=== PATIENT | female | born 1940 | race Caucasian/White ===

== ENCOUNTER 2016-11-20 08:13 | Day surgery (SDC) | payer MEDICARE, BC ==
[2016-11-15 13:58] VITALS: BMI 50.8
[~2016-11-20 08:13] MED LIST: LACTATED RINGERS 1,000 ML IV SCH
[2016-11-20 09:23] VITALS: RESP 18; TEMP 97.1
[2016-11-20] MEDS ORDERED: LIDOCAINE 1% 20 ML VIAL (10MG/ML) FOR IV START INTRADERMA ONE (09:23)
[2016-11-20] MEDS ORDERED: PROPOFOL 10 MG/ML 20 ML VIAL IV ONE (09:41)
--- NOTE | 2016-11-20 09:52 | P.PCN ---
Date of Procedure: 11/20/16 Procedure(s) Performed: BRIEF HISTORY: Patient is a 75-year-old, pleasant, white female, scheduled for an upper endoscopy as a part of surveillance of long-standing history of Valdez 's esophagus. Her last upper endoscopy was 2 years ago. He lately has been she has been complaint of intermittent dysphagia she had to solids. PROCEDURE PERFORMED: Esophagogastroduodenoscopy with biopsy. PREOPERATIVE DIAGNOSIS: Intermittent dysphagia to solids/lungs any history of GERD/Valdez's esophagus. IV sedation per anesthesia. PROCEDURE: After informed consent was obtained, the patient was brought into the endoscopy unit. IV conscious sedation was administered by Anesthesia under continuous monitoring. Initially the Olympus GIF-140 video endoscope was inserted into the mouth. Esophagus intubated without any difficulty. It was gradually advanced into the stomach and duodenum and carefully examined. The bulb and the second part of the duodenum appeared normal. The scope at this time was withdrawn to the stomach, adequately insufflated with air, and upon careful examination, mucosa of the antrum, body, cardia and the fundus appeared normal. The scope was then withdrawn into the esophagus. Moderate to large size hiatal hernia noted. The hiatal hernial sac appeared normal. The GE junction was located at 30 cm from the incisors. There was a calcified esophagus noted in the distal esophagus extending from 29-30 cm from the incisors and multiple biopsies were done from this area. The rest of the esophagus appeared normal. There were no erosions or ulcerations seen. No evidence of esophageal stricture and the patient tolerated the procedure well. IMPRESSION: 1. Valdez's esophagus status post biopsy. 2. Moderate to large size hiatal hernia. RECOMMENDATIONS: The findings of this examination were discussed with the patient as well as her family. She was advised to continue with her current medications and follow with the biopsy results. If the biopsy does not show any evidence of dysplasia she can have a repeat upper endoscopy in 2 years..
[2016-11-20 10:30] VITALS: BP 132/62; PULSE 60
== END 2016-11-20 11:09 | disposition home or self-care (01) ==
LOC: ORWHC2ENDO 08:13
PROVIDERS: ATTEND Internal Medicine Gastroenterology
DX: K22.70 Barrett's esophagus without dysplasia (principal); K44.9 Diaphragmatic hernia without obstruction or gangrene; I10 Essential (primary) hypertension; E78.5 Hyperlipidemia, unspecified; Z88.2 Allergy status to sulfonamides; Z79.899 Other long term (current) drug therapy
CPT/HCPCS: 43239; 88305; J2704

== ENCOUNTER → 2017-03-14 | Outpatient (CLI) | payer MEDICARE, BC ==
--- NOTE | 2017-03-14 11:33 | FL ---
EXAMINATION TYPE: FL barium swallow w video DATE OF EXAM: 03/14/2017 MODIFIED SWALLOW CLINICAL HISTORY: Dysphagia. TECHNIQUE: Deglutition study is performed utilizing thin liquid barium, honey and nectar thick liqui d barium, barium thick applesauce, and barium coated cracker. COMPARISON: None. FINDINGS: The oral and pharyngeal phases show satisfactory initiation and propagation with all modali ties tested. Normal mastication is seen with solid modalities tested. There is no evidence of penet ration or aspiration with any modality tested. No significant pharyngeal residue was appreciated. IMPRESSION: Normal deglutition study. Please refer to speech therapist notes for further details if necessary.
== END | disposition home or self-care (01) ==
LOC: RADFLMAIN 10:42
PROVIDERS: ATTEND Otolaryngology
DX: R13.10 Dysphagia, unspecified (principal)
CPT/HCPCS: 74230

== ENCOUNTER → 2017-05-23 | Outpatient (CLI) | payer MEDICARE, BC ==
--- NOTE | 2017-05-26 06:56 | MM ---
Reason for exam: screening (asymptomatic). Last mammogram was performed 1 year ago. History: Patient is postmenopausal. Benign excisional biopsy of the right breast, 1969. Physical Findings: A clinical breast exam by your physician is recommended on an annual basis and results should be correlated with mammographic findings. MG 3D Screening Mammo W/Cad Bilateral CC and MLO view(s) were taken. Prior study comparison: May 17, 2016, bilateral MG screening mammo w CAD. May 16, 2015, bilateral MG screening mammo w CAD. May 03, 2014, bilateral MG screening mammo w CAD. There are scattered fibroglandular densities. No suspicious abnormality. No significant changes when compared with prior studies. ASSESSMENT: Negative, BI-RAD 1 RECOMMENDATION: Routine screening mammogram of both breasts in 1 year.
== END | disposition home or self-care (01) ==
LOC: RADMAMWWP 06:48
PROVIDERS: ATTEND Internal Medicine
DX: Z12.31 Encounter for screening mammogram for malignant neoplasm of breast (principal)
CPT/HCPCS: 77063; G0202

== ENCOUNTER → 2017-11-13 | Outpatient (CLI) | payer MEDICARE, BC ==
[2017-11-13 09:04] LABS: Blood Urea Nitrogen 25 mg/dL (7-17)
--- NOTE | 2017-11-13 11:56 | CT ---
EXAMINATION TYPE: CT abdomen w con DATE OF EXAM: 11/13/2017 COMPARISON: NONE HISTORY: Hiatal hernia CT DLP: 2228.7 mGycm Automated exposure control for dose reduction was used. TECHNIQUE: Helical acquisition of images was performed from the lung bases through the top of iliac crest to include entire abdomen. CONTRAST: Performed with Oral Contrast and with IV Contrast, patient injected with 80 mL of Visipaque 320. FINDINGS: There is a hiatal hernia with intrathoracic stomach. Small supraumbilical abdominal wall he rnia contains fat. LUNG BASES: Calcified granuloma present in the right lung base laterally, no pleural or pericardial e ffusion LIVER/GB: Liver shows low-attenuation, gallbladder is normal PANCREAS: No significant abnormality is seen. SPLEEN: Multiple punctate calcifications are compatible with old granulomatous disease ADRENALS: No significant abnormality is seen. KIDNEYS: Small cortical cyst present in the anterior right kidney, parapelvic cysts present on the le ft are suspected. BOWEL: No significant abnormality is seen. LYMPH NODES: No significant abnormality is appreciated. OSSEOUS STRUCTURES: No significant abnormality is seen. FREE AIR: No Free Air visible ASCITES: None visible. RETROPERITONEAL ADENOPATHY: No Retroperitoneal Adenopathy visible. OTHER: IMPRESSION: FIXED INTRATHORACIC STOMACH WITH HIATAL HERNIA. OLD GRANULOMATOUS DISEASE. 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 ADDITIONAL FINDINGS ABOVE.
== END | disposition home or self-care (01) ==
LOC: RADCTMAIN 08:25
PROVIDERS: ATTEND Internal Medicine Gastroenterology
DX: K44.9 Diaphragmatic hernia without obstruction or gangrene (principal)
CPT/HCPCS: 82565; 84520; 74160; 36415; Q9967

== ENCOUNTER → 2018-11-13 | Outpatient (CLI) | payer MEDICARE, BC ==
--- NOTE | 2018-11-16 11:43 | MM ---
Reason for exam: screening (asymptomatic). Last mammogram was performed 1 year and 6 months ago. History: Patient is postmenopausal. Benign excisional biopsy of the right breast, 1970. Physical Findings: Nurse did not find any significant physical abnormalities on exam. MG 3D Screening Mammo W/Cad Bilateral CC and MLO view(s) were taken. Prior study comparison: May 23, 2017, bilateral MG 3d screening mammo w/cad. May 17, 2016, bilateral MG screening mammo w CAD. There are scattered fibroglandular densities. No significant changes when compared with prior studies. ASSESSMENT: Benign, BI-RAD 2 RECOMMENDATION: Routine screening mammogram of both breasts in 1 year.
== END | disposition home or self-care (01) ==
LOC: RADMAMWWP 10:44
PROVIDERS: ATTEND Internal Medicine
DX: Z12.31 Encounter for screening mammogram for malignant neoplasm of breast (principal)
CPT/HCPCS: 77063; 77067

== ENCOUNTER 2019-03-04 07:48 | Day surgery (SDC) | payer MEDICARE, BC ==
[2019-02-26 14:20] VITALS: BMI 46.0
--- NOTE | 2019-03-04 07:31 | P.GSHP ---
History of Present Illness H&P Date: 03/04/19 CHIEF COMPLAINT: GERD HISTORY OF PRESENT ILLNESS: The patient is a 78-year-old female who presents reports gastroesophageal reflux disease. Upper endoscopy was offered for further evaluation and management. PAST MEDICAL HISTORY: Please see list. PAST SURGICAL HISTORY: Please see list. MEDICATIONS: Please see list. ALLERGIES: Please see list. SOCIAL HISTORY: No illicit drug use FAMILY HISTORY: No reports of Crohn disease or ulcerative colitis. REVIEW OF ORGAN SYSTEMS: CONSTITUTIONAL: No reports of fevers or chills. GI: Denies any blood in stools or constipation. PHYSICAL EXAM: VITAL SIGNS: Stable GENERAL: Well-developed and pleasant in no acute distress. HEENT: No scleral icterus. Extraocular movements grossly intact. Moist buccal mucosa. NECK: Supple without lymphadenopathy. CHEST: Unlabored respirations. Equal bilateral excursions. CARDIOVASCULAR: Regular rate and rhythm. Distal 2+ pulses. ABDOMEN: Soft, nondistended. MUSCULOSKELETAL: No clubbing, cyanosis, or edema. ASSESSMENT: 1. Gastroesophageal reflux disease PLAN: 1. Recommend proceeding with an upper endoscopy Past Medical History Past Medical History: GERD/Reflux, Hyperlipidemia, Hypertension Additional Past Medical History / Comment(s): anemia History of Any Multi-Drug Resistant Organisms: None Reported Past Surgical History: Breast Surgery, Tonsillectomy, Tubal Ligation Additional Past Surgical History / Comment(s): JOSE CATARACTS, BREAST LUMPECTOMY, surgery for hiatal hernia-removed tumor in abdomen, Past Anesthesia/Blood Transfusion Reactions: Previous Problems w/ Anesthesia Additional Past Anesthesia/Blood Transfusion Reaction / Comment(s): throat swelling/hives/vomiting from hurricaine/benzocaine spray in throat Smoking Status: Former smoker - Past Family History Father Family Medical History: Cancer Sister(s) Family Medical History: Cancer Brother(s) Additional Family Medical History / Comment(s): brain hemorrhage Medications and Allergies Home Medications Medication Instructions Recorded Confirmed Type Aspirin 81 mg PO DAILY 11/07/14 02/26/19 History Hydrochlorothiazide 12.5 mg PO QAM 11/07/14 02/26/19 History Losartan Potassium 50 mg PO QAM 11/07/14 02/26/19 History Pravastatin Sodium [Pravachol] 20 mg PO HS 11/07/14 02/26/19 History Calcium Carbonate [Calcium] 600 mg PO DAILY 11/15/16 02/26/19 History Cholecalciferol [Vitamin D3] 1,000 unit PO DAILY 11/15/16 02/26/19 History Pyridoxine [Vitamin B-6] 50 mg PO ONCE 11/15/16 02/26/19 History Allergies Allergy/AdvReac Type Severity Reaction Status Date / Time benzocaine Allergy throat Verified 02/26/19 14:09 swelling, hives, chills, vomiting Sulfa (Sulfonamide Allergy Rash/Hives Verified 02/26/19 14:09 Antibiotics) hurricaine spray Allergy throat Uncoded 02/26/19 14:09 swelling, hives, chills, vomiting
[~2019-03-04 07:48] MED LIST changes: +LIDOCAINE 1% 20 ML VIAL (10MG/ML) FOR IV START INTRADERMA PRN
[2019-03-04 08:08] VITALS: TEMP 96.9
[2019-03-04] MEDS ORDERED: MIDAZOLAM 2 MG/2 ML VIAL ONE (08:25)
[2019-03-04] MEDS ORDERED: PROPOFOL 10 MG/ML 20 ML VIAL IV ONE (08:25)
[2019-03-04] MEDS ORDERED: KETAMINE 10 MG/ML 20 ML VIAL ONE (08:25)
--- NOTE | 2019-03-04 08:41 | P.PCN ---
Date of Procedure: 03/04/19 Description of Procedure: PREOPERATIVE DIAGNOSIS: Gastroesophageal reflux disease. Morbid obesity. History of giant paraesophageal hiatal hernia status post repair POSTOPERATIVE DIAGNOSIS: Gastroesophageal reflux disease. Morbid obesity. History of giant paraesophageal hiatal hernia status post repair Retained food, gastroparesis OPERATION: Esophagogastroduodenoscopy SURGEON: Alma Rosa Wooten MD ANESTHESIA: MAC. INDICATIONS: The patient is a 78-year-old female who presents with a history of reflux disease. Benefits and risks of the procedure were described. Informed consent was obtained. DESCRIPTION: The patient was brought into the endoscopy suite and laid in the left lateral decubitus position. An Olympus gastroscope was passed along the posterior oropharynx down to the distal esophagus where the squamocolumnar junction was encountered at 40 cm from the incisors. The stomach was entered and no bile reflux was found. Additional findings are listed below. Moderate retained food was identified along the superior pole of the stomach. The first through third portion of the duodenum was examined and remarkable for very mild duodenitis. Retroflexion of the scope confirmed food obscuring view of the lower esophageal valve. The squamocolumnar junction demonstrated mild LA grade A erosive esophagitis. The stomach was desufflated. The patient tolerated the procedure well. FINDINGS: Squamocolumnar junction 30 cm from the incisors. Hiatal hernia, 1 cm Hill grade lower esophageal valve obsecured by retained food Minimal LA grade A erosive esophagitis. No active duodenitis. Moderate retained food along the upper pole of the stomach RECOMMENDATIONS: Upper endoscopy as needed. Recommend adjustment of diet for suspected gastroparesis Plan - Discharge Summary New Discharge Prescriptions: New Metoclopramide [Reglan] 10 mg PO ACHS #30 tab No Action Pravastatin Sodium [Pravachol] 20 mg PO HS Losartan Potassium 50 mg PO QAM Hydrochlorothiazide 12.5 mg PO QAM Aspirin 81 mg PO DAILY Pyridoxine [Vitamin B-6] 50 mg PO ONCE Cholecalciferol [Vitamin D3] 1,000 unit PO DAILY Calcium Carbonate [Calcium] 600 mg PO DAILY Discharge Medication List Aspirin 81 mg PO DAILY 11/07/14 [History] Hydrochlorothiazide 12.5 mg PO QAM 11/07/14 [History] Losartan Potassium 50 mg PO QAM 11/07/14 [History] Pravastatin Sodium [Pravachol] 20 mg PO HS 11/07/14 [History] Calcium Carbonate [Calcium] 600 mg PO DAILY 11/15/16 [History] Cholecalciferol [Vitamin D3] 1,000 unit PO DAILY 11/15/16 [History] Pyridoxine [Vitamin B-6] 50 mg PO ONCE 11/15/16 [History] Metoclopramide [Reglan] 10 mg PO ACHS #30 tab 03/04/19 [Rx] Follow up Appointment(s)/Referral(s): Alma Rosa Wooten MD [STAFF PHYSICIAN] - 03/16/19 Patient Instructions/Handouts: Gastroparesis (DC) Activity/Diet/Wound Care/Special Instructions: Drink plenty of water in between bites of food. Discharge Disposition: HOME SELF-CARE
[2019-03-04 09:07] VITALS: BP 140/90; PULSE 78; RESP 18
== END 2019-03-04 09:17 | disposition home or self-care (01) ==
LOC: ORWHC2ENDO 07:48
PROVIDERS: ATTEND Surgery Plastic and Reconstructive Surgery
DX: K21.9 Gastro-esophageal reflux disease without esophagitis (principal); E66.01 Morbid (severe) obesity due to excess calories; Z68.42 Body mass index [BMI] 45.0-49.9, adult; K31.84 Gastroparesis; K29.80 Duodenitis without bleeding; K20.8 Other esophagitis; K44.9 Diaphragmatic hernia without obstruction or gangrene; I10 Essential (primary) hypertension; E78.5 Hyperlipidemia, unspecified; Z87.891 Personal history of nicotine dependence; Z97.2 Presence of dental prosthetic device (complete) (partial); Z79.82 Long term (current) use of aspirin; Z79.899 Other long term (current) drug therapy; Z88.4 Allergy status to anesthetic agent; Z88.2 Allergy status to sulfonamides; Z98.51 Tubal ligation status; Z80.9 Family history of malignant neoplasm, unspecified
CPT/HCPCS: 43235; J2250; J2704

== ENCOUNTER → 2019-06-10 | Outpatient (CLI) | payer MEDICARE, BC ==
[2019-06-10 16:36] LABS: African American GFR (CKD) 50.8 (60.0-200.0)
== END | disposition home or self-care (01) ==
LOC: LABWHC1 08:08
PROVIDERS: ATTEND Internal Medicine Interventional Cardiology
DX: R07.89 Other chest pain (principal); R06.02 Shortness of breath; Z01.810 Encounter for preprocedural cardiovascular examination
CPT/HCPCS: 36415; 82565; 84520

== ENCOUNTER → 2020-05-23 | Outpatient (CLI) | payer MEDICARE, BC ==
--- NOTE | 2020-05-23 11:23 | MM ---
Reason for exam: screening (asymptomatic). Last mammogram was performed 1 year and 6 months ago. History: Patient is postmenopausal. Benign excisional biopsy of the right breast, 1970. Physical Findings: A clinical breast exam by your physician is recommended on an annual basis and results should be correlated with mammographic findings. MG 3D Screening Mammo W/Cad Bilateral CC and MLO view(s) were taken. Prior study comparison: November 13, 2018, bilateral MG 3d screening mammo w/cad. May 23, 2017, bilateral MG 3d screening mammo w/cad. There are scattered fibroglandular densities. There are benign appearing round calcifications in the left breast. Previous mammotome biopsy in the right breast. There is no discrete abnormality. ASSESSMENT: Benign, BI-RAD 2 RECOMMENDATION: Routine screening mammogram of both breasts in 1 year.
== END | disposition home or self-care (01) ==
LOC: RADMAMWWP 07:04
PROVIDERS: ATTEND Internal Medicine
DX: Z12.31 Encounter for screening mammogram for malignant neoplasm of breast (principal)
CPT/HCPCS: 77063; 77067

== ENCOUNTER → 2021-01-29 | Outpatient (CLI) | payer MEDICARE ==
--- NOTE | 2021-01-29 12:43 | FL ---
EXAMINATION TYPE: FL barium swallow DATE OF EXAM: 01/29/2021 CLINICAL HISTORY: Pain TECHNIQUE: A double contrast esophagram is performed utilizing air and barium. A total of 52 second s of fluoroscopic time was utilized during procedure. Approximately 20 images submitted COMPARISON: None FINDINGS: There appears to be a large hiatal hernia. No evidence of obstruction. Esophageal peristals is and motility is normal. No significant gastroesophageal reflux visualized. There is some displacem ent of the distal esophagus from the hernia. IMPRESSION: 1. Large hiatal hernia.
== END | disposition home or self-care (01) ==
LOC: RADUSWWP 09:17
PROVIDERS: ATTEND Surgery Plastic and Reconstructive Surgery
DX: K44.9 Diaphragmatic hernia without obstruction or gangrene (principal)
CPT/HCPCS: 74220

== ENCOUNTER 2021-02-07 08:44 | Day surgery (SDC) | payer MEDICARE ==
[2021-02-05 16:24] VITALS: BMI 50.0
[~2021-02-07 08:44] MED LIST changes: +LIDOCAINE 1% (10MG/ML) FOR IV START INTRADERMA PRN; -LIDOCAINE 1% 20 ML VIAL (10MG/ML) FOR IV START INTRADERMA PRN
[2021-02-07 09:07] VITALS: TEMP 97.3
--- NOTE | 2021-02-07 09:12 | P.GSHP ---
History of Present Illness H&P Date: 02/07/21 CHIEF COMPLAINT: GERD HISTORY OF PRESENT ILLNESS: The patient is a 80-year-old female who presents reports gastroesophageal reflux disease. Upper endoscopy was offered for further evaluation and management. PAST MEDICAL HISTORY: Please see list. PAST SURGICAL HISTORY: Please see list. MEDICATIONS: Please see list. ALLERGIES: Please see list. SOCIAL HISTORY: No illicit drug use FAMILY HISTORY: No reports of Crohn disease or ulcerative colitis. REVIEW OF ORGAN SYSTEMS: CONSTITUTIONAL: No reports of fevers or chills. GI: Denies any blood in stools or constipation. PHYSICAL EXAM: VITAL SIGNS: Stable GENERAL: Well-developed and pleasant in no acute distress. HEENT: No scleral icterus. Extraocular movements grossly intact. Moist buccal mucosa. NECK: Supple without lymphadenopathy. CHEST: Unlabored respirations. Equal bilateral excursions. CARDIOVASCULAR: Regular rate and rhythm. Distal 2+ pulses. ABDOMEN: Soft, nondistended. MUSCULOSKELETAL: No clubbing, cyanosis, or edema. ASSESSMENT: 1. Gastroesophageal reflux disease PLAN: 1. Recommend proceeding with an upper endoscopy Past Medical History Past Medical History: GERD/Reflux, Hyperlipidemia, Hypertension Additional Past Medical History / Comment(s): anemia History of Any Multi-Drug Resistant Organisms: None Reported Past Surgical History: Breast Surgery, Tonsillectomy, Tubal Ligation Additional Past Surgical History / Comment(s): JOSE CATARACTS, BREAST LUMPECTOMY, surgery for hiatal hernia-removed tumor in abdomen, Past Anesthesia/Blood Transfusion Reactions: Previous Problems w/ Anesthesia, Motion Sickness Additional Past Anesthesia/Blood Transfusion Reaction / Comment(s): throat swelling/hives/vomiting from hurricaine/benzocaine spray in throat Smoking Status: Former smoker - Past Family History Father Family Medical History: Cancer Sister(s) Family Medical History: Cancer Brother(s) Additional Family Medical History / Comment(s): brain hemorrhage Medications and Allergies Home Medications Medication Instructions Recorded Confirmed Type Aspirin 81 mg PO DAILY 11/07/14 02/07/21 History Hydrochlorothiazide 12.5 mg PO QAM 11/07/14 02/07/21 History Losartan Potassium 50 mg PO QAM 11/07/14 02/07/21 History Pravastatin Sodium [Pravachol] 20 mg PO HS 11/07/14 02/07/21 History Calcium Carbonate [Calcium] 600 mg PO DAILY 11/15/16 02/07/21 History Cholecalciferol [Vitamin D3] 1,000 unit PO DAILY 11/15/16 02/07/21 History Pyridoxine [Vitamin B-6] 50 mg PO DAILY 11/15/16 02/07/21 History Glucosamine/Chondr Sigala A Sod [Osteo 1 each PO DAILY 02/05/21 02/07/21 History Bi-Flex Caplet] Vit C/E/Zn/Coppr/Lutein/Zeaxan 1 each PO DAILY 02/05/21 02/07/21 History [Preservision Areds 2 Softgel] Zinc 50 mg PO DAILY 02/05/21 02/07/21 History Allergies Allergy/AdvReac Type Severity Reaction Status Date / Time benzocaine Allergy throat Verified 02/07/21 08:58 swelling, hives, chills, vomiting Sulfa (Sulfonamide Allergy Rash/Hives Verified 02/07/21 08:58 Antibiotics) hurricaine spray Allergy throat Uncoded 02/07/21 08:58 swelling, hives, chills, vomiting Surgical - Exam Vital Signs Temp Pulse Resp BP Pulse Ox 97.3 F L 62 18 189/83 98 02/07/21 09:05 02/07/21 09:05 02/07/21 09:05 02/07/21 09:05 02/07/21 09:05
[2021-02-07] MEDS ORDERED: PROPOFOL 10 MG/ML 20 ML VIAL IV ONE (10:17)
--- NOTE | 2021-02-07 10:38 | P.PCN ---
Date of Procedure: 02/07/21 Description of Procedure: PREOPERATIVE DIAGNOSIS: Gastroesophageal reflux disease. Morbid obesity. POSTOPERATIVE DIAGNOSIS: Gastritis. Gastroesophageal reflux disease. Diaphragmatic hiatal hernia, recurrent paraesophageal hiatal hernia Morbid obesity. OPERATION: Esophagogastroduodenoscopy with biopsies along antrum. SURGEON: Alma Rosa Wooten MD ANESTHESIA: MAC. INDICATIONS: The patient is a 80-year-old female who presents with a history of reflux disease including previous existing paraesophageal hiatal hernia repair. Benefits and risks of the procedure were described. Informed consent was obtained. DESCRIPTION: The patient was brought into the endoscopy suite and laid in the left lateral de cubitus position. An Olympus gastroscope was passed along the posterior oropharynx down to the distal esophagus where the squamocolumnar junction was encountered at 30 cm from the incisors. The stomach was entered and no bile reflux was found. Additional findings are listed below. Biopsies with cold forceps were obtained of the antrum. The first through third portion of the duodenum was examined and unremarkable. Retroflexion of the scope confirmed Hill grade 4 lower esophageal valve. The squamocolumnar junction demonstrated LA grade B erosive esophagitis. The stomach was desufflated. The patient tolerated the procedure well. FINDINGS: Squamocolumnar junction 33 cm from the incisors. Diaphragmatic hiatus at 40 cm. Hiatal hernia, 7 cm Hill grade 4 lower esophageal valve. LA grade B erosive esophagitis. No active duodenitis. Chronic gastritis with recent bleed Retained food distal esophagus Retained food stomach RECOMMENDATIONS: 1. Recommend esophagram for recurrent paraesophageal hiatal hernia Plan - Discharge Summary Discharge Rx Participant: No New Discharge Prescriptions: New Omeprazole [PriLOSEC] 40 mg PO DAILY #14 cap Continue Pravastatin Sodium [Pravachol] 20 mg PO HS Losartan Potassium 50 mg PO QAM Hydrochlorothiazide 12.5 mg PO QAM Aspirin 81 mg PO DAILY Pyridoxine [Vitamin B-6] 50 mg PO DAILY Cholecalciferol [Vitamin D3 (25 Mcg = 1000 Iu)] 1,000 unit PO DAILY Calcium Carbonate [Calcium] 600 mg PO DAILY Vit C/E/Zn/Coppr/Lutein/Zeaxan [Preservision Areds 2 Softgel] 1 each PO DAILY Zinc 50 mg PO DAILY Glucosamine/Chondr Sigala A Sod [Osteo Bi-Flex Caplet] 1 each PO DAILY Discharge Medication List Aspirin 81 mg PO DAILY 11/07/14 [History] Hydrochlorothiazide 12.5 mg PO QAM 11/07/14 [History] Losartan Potassium 50 mg PO QAM 11/07/14 [History] Pravastatin Sodium [Pravachol] 20 mg PO HS 11/07/14 [History] Calcium Carbonate [Calcium] 600 mg PO DAILY 11/15/16 [History] Cholecalciferol [Vitamin D3 (25 Mcg = 1000 Iu)] 1,000 unit PO DAILY 11/15/16 [History] Pyridoxine [Vitamin B-6] 50 mg PO DAILY 11/15/16 [History] Glucosamine/Chondr Sigala A Sod [Osteo Bi-Flex Caplet] 1 each PO DAILY 02/05/21 [History] Vit C/E/Zn/Coppr/Lutein/Zeaxan [Preservision Areds 2 Softgel] 1 each PO DAILY 02/05/21 [History] Zinc 50 mg PO DAILY 02/05/21 [History] Omeprazole [PriLOSEC] 40 mg PO DAILY #14 cap 02/07/21 [Rx] Follow up Appointment(s)/Referral(s): Alma Rosa Wooten MD [STAFF PHYSICIAN] - 02/22/21 Patient Instructions/Handouts: Hiatal Hernia (DC) Discharge Disposition: HOME SELF-CARE
[2021-02-07 11:10] VITALS: BP 149/82; PULSE 64; RESP 18
== END 2021-02-07 11:22 | disposition home or self-care (01) ==
LOC: ORWHC2ENDO 08:44
PROVIDERS: ATTEND Surgery Plastic and Reconstructive Surgery
DX: K29.50 Unspecified chronic gastritis without bleeding (principal); K21.00 Gastro-esophageal reflux disease with esophagitis, without bleeding; K22.10 Ulcer of esophagus without bleeding; K44.9 Diaphragmatic hernia without obstruction or gangrene; I10 Essential (primary) hypertension; E78.5 Hyperlipidemia, unspecified; E66.01 Morbid (severe) obesity due to excess calories; Z79.899 Other long term (current) drug therapy; Z88.2 Allergy status to sulfonamides; Z88.8 Allergy status to other drugs, medicaments and biological substances; Z87.891 Personal history of nicotine dependence
CPT/HCPCS: 88305; 43239; J2704

== ENCOUNTER → 2021-03-01 | Outpatient (CLI) | payer MEDICARE ==
--- NOTE | 2021-03-02 06:28 | CT ---
EXAMINATION TYPE: CT abdomen pelvis w con DATE OF EXAM: 03/01/2021 HISTORY: Diverticulitis CT DLP: 2033.40mGycm Automated Exposure Control for Dose Reduction was Utilized. CONTRAST: CT scan of the abdomen and pelvis is performed with oral and with IV Contrast, patient injected with 80 mL of Isovue 300. COMPARISON: Prior CT abdomen November 13, 2017 FINDINGS: LUNG BASES: No significant abnormality is appreciated. LIVER/GB: No significant abnormality is appreciated. PANCREAS: No significant abnormality is seen. SPLEEN: Scattered calcifications throughout spleen consistent with product of old granulomatous disea se redemonstrated. ADRENALS: No significant abnormality is seen. KIDNEYS: Symmetric cortical medullary uptake and excretion without hydronephrosis seen bilaterally ce ntral benign-appearing parapelvic cysts are identified bilaterally. There is subcentimeter thin-bandar d cyst anteriorly mid to lower pole level right kidney. BOWEL: Large hiatal hernia redemonstrated with abnormal twisting of intrathoracic portion of stomach again seen. Coronary artery calcification in the RCA distribution redemonstrated. The oral contrast r eaches level of cecum making evaluation of distal bowel slightly suboptimal. There are diverticula in the left and sigmoid colon. There is mild fat stranding and vasa engorgement in the left lower quadr ant near junction of left and sigmoid colon. No well-formed fluid collection or abscess. No free air noted. Normal gas-filled appendix extends centrally from the cecum in the lower abdomen. UTERUS/ADNEXA: Anteverted uterus. LYMPH NODES: No greater than 1cm abdominal or pelvic lymph nodes are appreciated. OSSEOUS STRUCTURES: Vacuum disc phenomenon L4-L5 and L5-S1 levels. Moderate disc space narrowing with anterior spurring and sclerosis at the T12-L1 level. Moderate axial joint space loss both hips. OTHER: Moderate calcified plaque of the aorta extends into branch vessels. IMPRESSION: Mild uncomplicated acute diverticulitis centered left lower quadrant near junction of lef t and sigmoid colon on current study correlates with patient's history.
== END | disposition home or self-care (01) ==
LOC: RADCTMAIN 16:14
PROVIDERS: ATTEND Surgery Plastic and Reconstructive Surgery
DX: K57.32 Diverticulitis of large intestine without perforation or abscess without bleeding (principal)
CPT/HCPCS: 82565; 84520; 74177; 36415; Q9967

== ENCOUNTER → 2021-06-22 | Outpatient (CLI) | payer MEDICARE ==
--- NOTE | 2021-06-25 09:22 | MM ---
Reason for exam: screening (asymptomatic). Last mammogram was performed 1 year and 1 month ago. History: Patient is postmenopausal. Benign excisional biopsy of the right breast, 1970. Physical Findings: A clinical breast exam by your physician is recommended on an annual basis and results should be correlated with mammographic findings. MG 3D Screening Mammo W/Cad Bilateral CC and MLO view(s) were taken. XCCL view(s) were taken of the left breast. Prior study comparison: May 23, 2020, bilateral MG 3d screening mammo w/cad. November 13, 2018, bilateral MG 3d screening mammo w/cad. May 23, 2017, bilateral MG 3d screening mammo w/cad. There are scattered fibroglandular densities. There are benign appearing round calcifications bilaterally. There is no discrete abnormality. ASSESSMENT: Benign, BI-RAD 2 RECOMMENDATION: Routine screening mammogram of both breasts in 1 year.
== END | disposition home or self-care (01) ==
LOC: RADMAMWWP 07:05
PROVIDERS: ATTEND Family Medicine
DX: Z12.31 Encounter for screening mammogram for malignant neoplasm of breast (principal); Z78.0 Asymptomatic menopausal state
CPT/HCPCS: 77063; 77067

== ENCOUNTER → 2022-07-04 | Outpatient (CLI) | payer MEDICARE ==
--- NOTE | 2022-07-04 10:25 | MM ---
Reason for Exam: Screening (asymptomatic). Last mammogram was performed 1 year(s) and 1 month(s) ago. Patient History: Menarche at age 15. First Full-Term at age 22. Postmenopausal. 1970, Benign Excisional Biopsy on the right side. Risk Values: Naomie 5 year model risk: 1.8%. NCI Lifetime model risk: 3.0%. Prior Study Comparison: 05/17/2016 Bilateral Screening Mammogram, [facility]. 05/23/2017 Bilateral Screening Mammogram, [facility]. 11/13/2018 Bilateral Screening Mammogram, [facility]. 05/23/2020 Bilateral Screening Mammogram, [facility]. 06/22/2021 Bilateral Screening Mammogram, [facility]. Tissue Density: There are scattered fibroglandular densities. Findings: Analyzed By CAD. There is no suspicious group of microcalcifications or new suspicious mass in either breast. Benign appearing round calcifications bilaterally. No significant change from prior exams. Overall Assessment: Benign, BI-RAD 2 Management: Screening Mammogram of both breasts in 1 year. A clinical breast exam by your physician is recommended on an annual basis and results should be correlated with mammographic findings. Electronically signed and approved by: Richard Serrato D.O.
== END | disposition home or self-care (01) ==
LOC: RADMAMWWP 06:52
PROVIDERS: ATTEND Family Medicine
DX: Z12.31 Encounter for screening mammogram for malignant neoplasm of breast (principal); Z78.0 Asymptomatic menopausal state
CPT/HCPCS: 77063; 77067

== ENCOUNTER 2022-08-05 09:11 | Day surgery (SDC) | payer MEDICARE ==
[~2022-08-05 09:11] MED LIST changes: -LIDOCAINE 1% (10MG/ML) FOR IV START INTRADERMA PRN
[2022-08-05] MEDS ORDERED: LACTATED RINGERS 1,000 ML IV ONE (09:48)
[2022-08-05 09:54] VITALS: TEMP 98.2
[2022-08-05] MEDS ORDERED: PROPOFOL 10 MG/ML 20 ML VIAL IV ONE (10:35)
--- NOTE | 2022-08-05 10:56 | P.PCN ---
Date of Procedure: 08/05/22 Preoperative Diagnosis: Colon cancer screening Postoperative Diagnosis: Colon cancer screening, diverticulosis Procedure(s) Performed: Colonoscopy Anesthesia: JANKI HIGGINS Surgeon: Saritha Styles Pathology: none sent Condition: stable Disposition: PACU Indications for Procedure: Patient presents for colon cancer screening. Prior colonoscopy was about 10 years ago. She has a personal history of colon polyps Description of Procedure: Patient's taken to the endoscopy suite where colonoscope is passed per rectum to the cecum. She had a excellent prep. There is diverticulosis scattered throughout the colon including the right colon. Some moderate internal hemorrhoids were seen on retroflexion of the scope. The colon is otherwise without evidence of polyp, mass lesion, ulcer, stricture or other mucosal abnormality. She tolerated the procedure without difficulty and was taken to recovery in satisfactory condition. No repeat colonoscopy unless something changes with the bowel habits. Plan - Discharge Summary Discharge Rx Participant: No New Discharge Prescriptions: No Action Pravastatin Sodium [Pravachol] 20 mg PO HS Losartan Potassium 100 mg PO QAM Hydrochlorothiazide 25 mg PO QAM Aspirin 81 mg PO DAILY Pyridoxine [Vitamin B-6] 50 mg PO DAILY Cholecalciferol [Vitamin D3 (25 Mcg = 1000 Iu)] 1,000 unit PO DAILY Calcium Carbonate [Calcium] 600 mg PO DAILY Docusate [Colace] 100 mg PO DAILY metFORMIN HCL 500 mg PO DAILY Turmeric Root Extract [Turmeric] 13 - 300 mg PO DAILY Cinnamon Bark [Cinnamon] 500 mg PO DAILY Biotin 1,000 mg PO DAILY Vit C/E/Zn/Coppr/Lutein/Zeaxan [Preservision Areds 2 Softgel] 1 each PO DAILY Zinc 50 mg PO DAILY Glucosamine/Chondr Sigala A Sod [Osteo Bi-Flex Caplet] 1 each PO DAILY Omeprazole [PriLOSEC] 40 mg PO DAILY #14 cap Naproxen Sodium [Aleve] 220 mg PO DAILY Glucosamine/Chondr Sigala A Sod [Osteo Bi-Flex Caplet] 1 each PO DAILY Ascorbic Acid [Vitamin C] 2 tab PO DAILY Discharge Medication List Aspirin 81 mg PO DAILY 11/07/14 [History] Hydrochlorothiazide 25 mg PO QAM 11/07/14 [History] Losartan Potassium 100 mg PO QAM 11/07/14 [History] Pravastatin Sodium [Pravachol] 20 mg PO HS 11/07/14 [History] Calcium Carbonate [Calcium] 600 mg PO DAILY 11/15/16 [History] Cholecalciferol [Vitamin D3 (25 Mcg = 1000 Iu)] 1,000 unit PO DAILY 11/15/16 [History] Pyridoxine [Vitamin B-6] 50 mg PO DAILY 11/15/16 [History] Glucosamine/Chondr Sigala A Sod [Osteo Bi-Flex Caplet] 1 each PO DAILY 02/05/21 [History] Vit C/E/Zn/Coppr/Lutein/Zeaxan [Preservision Areds 2 Softgel] 1 each PO DAILY 02/05/21 [History] Zinc 50 mg PO DAILY 02/05/21 [History] Omeprazole [PriLOSEC] 40 mg PO DAILY #14 cap 02/07/21 [Rx] Ascorbic Acid [Vitamin C] 2 tab PO DAILY 08/01/22 [History] Biotin 1,000 mg PO DAILY 08/01/22 [History] Cinnamon Bark [Cinnamon] 500 mg PO DAILY 08/01/22 [History] Docusate [Colace] 100 mg PO DAILY 08/01/22 [History] Glucosamine/Chondr Sigala A Sod [Osteo Bi-Flex Caplet] 1 each PO DAILY 08/01/22 [H istory] Naproxen Sodium [Aleve] 220 mg PO DAILY 08/01/22 [History] Turmeric Root Extract [Turmeric] 13 - 300 mg PO DAILY 08/01/22 [History] metFORMIN HCL 500 mg PO DAILY 08/01/22 [History]
[2022-08-05 11:01] VITALS: RESP 18
[2022-08-05 11:41] VITALS: BP 121/76; PULSE 63
== END 2022-08-05 11:43 | disposition home or self-care (01) ==
LOC: ORWHC2ENDO 09:11
PROVIDERS: ATTEND Surgery
DX: Z12.11 Encounter for screening for malignant neoplasm of colon (principal); K57.30 Diverticulosis of large intestine without perforation or abscess without bleeding; I10 Essential (primary) hypertension; E78.5 Hyperlipidemia, unspecified; E11.9 Type 2 diabetes mellitus without complications; J45.909 Unspecified asthma, uncomplicated; K21.9 Gastro-esophageal reflux disease without esophagitis; Z87.891 Personal history of nicotine dependence; Z79.899 Other long term (current) drug therapy; Z88.2 Allergy status to sulfonamides; Z88.8 Allergy status to other drugs, medicaments and biological substances; Z79.84 Long term (current) use of oral hypoglycemic drugs; Z86.010 Personal history of colon polyps
CPT/HCPCS: J2704; G0105

== ENCOUNTER → 2023-07-07 | Outpatient (CLI) | payer MEDICARE ==
--- NOTE | 2023-07-07 08:01 | MM ---
Reason for Exam: Screening (asymptomatic). Last screening mammogram was performed 12 month(s) ago. Patient History: Menarche at age 15. First Full-Term at age 22. Postmenopausal. 1970, Benign Excisional Biopsy on the right side. Risk Values: Naomie 5 year model risk: 1.7%. NCI Lifetime model risk: 2.7%. Prior Study Comparison: 05/23/2020 Bilateral Screening Mammogram, [facility]. 06/22/2021 Bilateral Screening Mammogram, [facility]. 07/04/2022 Bilateral MG 3D screening mammo w/cad, [facility]. Tissue Density: There are scattered fibroglandular densities. Findings: Analyzed By CAD. There is no suspicious group of microcalcifications or new suspicious mass in either breast. Benign appearing round calcifications bilaterally. No significant change from prior exams. Overall Assessment: Benign, BI-RAD 2 Management: Screening Mammogram of both breasts in 1 year. A clinical breast exam by your physician is recommended on an annual basis and results should be correlated with mammographic findings. Note on Naomie scores and lifetime risk: 1. A Naomie score greater than 3% is considered moderate risk. If this is the case, consider specialist referral to assess eligibility for a risk reducing agent. If overall lifetime risk for the development of breast cancer is 20% or higher, the patient may qualify for future screening with alternating mammogram and breast MRI. Electronically signed and approved by: Richard Serrato D.O.
== END | disposition home or self-care (01) ==
LOC: RADMAMWWP 06:47
PROVIDERS: ATTEND Family Medicine
DX: Z12.31 Encounter for screening mammogram for malignant neoplasm of breast (principal); Z78.0 Asymptomatic menopausal state
CPT/HCPCS: 77063; 77067

== ENCOUNTER → 2024-09-07 | Outpatient (CLI) | payer MEDICARE, BC ==
--- NOTE | 2024-09-07 09:13 | MM ---
Reason for Exam: Screening (asymptomatic). Last mammogram was performed 1 year(s) and 2 month(s) ago. Patient History: Menarche at age 15. First Full-Term at age 22. Postmenopausal. 1970, Benign Excisional Biopsy on the right side. Risk Values: Naomie 5 year model risk: 1.7%. NCI Lifetime model risk: 2.5%. Prior Study Comparison: 06/22/2021 Bilateral Screening Mammogram, [facility]. 07/04/2022 Bilateral MG 3D screening mammo w/cad, [facility]. 07/07/2023 Bilateral MG 3D screening mammo w/cad, [facility]. Tissue Density: The breasts are almost entirely fatty. Findings: Analyzed By CAD. Right breast: There is no suspicious group of microcalcifications or new suspicious mass. Benign-appearing calcifications right breast. Left breast: There is no suspicious group of microcalcifications or new suspicious mass. Benign-appearing calcifications left breast. Overall Assessment: Benign, BI-RAD 2 Management: Screening Mammogram of both breasts in [address] [facility] will attempt to contact patient to return for supplemental views and ultrasound if indicated. Patient should continue monthly self-breast exams. A clinical breast exam by your physician is recommended on an annual basis. This exam should not preclude additional follow-up of suspicious palpable abnormalities. Note on Naomie scores and lifetime risk: 1. A Naomie score greater than 3% is considered moderate risk. If this is the case, consider specialist referral to assess eligibility for a risk reducing agent. 2. If overall lifetime risk for the development of breast cancer is 20% or higher, the patient may qualify for future screening with alternating mammogram and breast MRI. [facility], , 09/07/2024 8:47 AM. Electronically signed and approved by: Ramírez Guerrero DO
== END | disposition home or self-care (01) ==
LOC: RADMAMWWP 07:02
PROVIDERS: ATTEND Family Medicine
DX: Z12.31 Encounter for screening mammogram for malignant neoplasm of breast (principal); Z78.0 Asymptomatic menopausal state
CPT/HCPCS: 77063; 77067